=== PATIENT | male | born 1985 | race Caucasian/White ===

== ENCOUNTER 2018-09-23 20:42 | Emergency (ER) | payer BC ==
[2018-09-23 22:19] LABS: Absolute Lymphocytes (CBC) 2.7 K/uL (0.7-4.9); Absolute Monocytes 1.1 K/uL (0.1-1.3); Absolute Neutrophil 5.9 K/uL (1.8-8.0); Basophils % 0.2 % (0-1.3); Eosinophils % 3.3 % (0-4.4); Hematocrit 48.8 % (39.6-49.0); Lymphocytes % 27.2 % (15.3-44.8); MPV 7.5 fL (7.6-11.3); Monocytes % 10.8 % (3.3-12.3)
[2018-09-23] MEDS ORDERED: NA CHLORIDE 0.9% 1,000 ML ONE (22:24)
[2018-09-23] MEDS ORDERED: MORPHINE 4 MG/ML SYR ONE (22:24)
[2018-09-23] MEDS ORDERED: PANTOPRAZOLE 40 MG INJ ONE (22:24)
[2018-09-23] MEDS ORDERED: ONDANSETRON 4 MG/2 ML VIAL ONE (22:24)
[2018-09-23 22:37] LABS: ALT/SGPT 27 U/L (12-78); AST/SGOT 12 U/L (15-37); Albumin 3.8 g/dL (3.4-5.0); Alkaline Phosphatase 72 U/L (45-117); BUN Blood Urea Nitrogen 16 mg/dL (7-18); Bicarbonate 30 mmol/L (21-32); Bilirubin Direct 0.1 mg/dL (0-0.2); Bilirubin Total 0.4 mg/dL (0.2-1.0); Glucose Level 113 mg/dL (74-106); Lipase 82 U/L (73-393); Potassium 3.5 mmol/L (3.5-5.1); Protein, Total 7.4 g/dL (6.4-8.2); Sodium Level 142 mmol/L (136-145)
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
--- NOTE | 2018-09-24 00:31 | EDPHYS ---
Physician Documentation [facility] Name: Kwaku Pro Age: 33 yrs Sex: Male : 1985 Arrival Date: 09/23/2018 Time: 20:45 Bed 5 Private MD: ED Physician Lv Guillen HPI: 09/23 21:50 This 33 yrs old Male presents to ER via Ambulatory with complaints of jinny Abdominal Pain. 21:50 The patient presents with abdominal pain in the epigastric area, in the upper abdomen. jinny Onset: The symptoms/episode began/occurred 2 day(s) ago. The symptoms do not radiate. Associated signs and symptoms: none. Modifying factors: The symptoms are alleviated by nothing, the symptoms are aggravated by nothing. Severity of pain: At its worst the pain was mild moderate in the emergency department the pain is unchanged. The patient has not experienced similar symptoms in the past. Historical: - Allergies: 21:24 No Known Allergies; aa1 - Home Meds: 21:24 None [Active]; aa1 - PMHx: 21:24 None; aa1 - PSHx: 21:24 Exp Lap from [facility]; aa1 - Immunization history:: Flu vaccine is not up to date. - Social history:: Smoking status: Patient uses tobacco products, smokes one-half pack cigarettes per day. - Ebola Screening: : No symptoms or risks identified at this time. - Family history:: not pertinent. ROS: 21:50 Constitutional: Negative for fever, chills, and weight loss, Eyes: Negative for injury, jinny pain, redness, and discharge, ENT: Negative for injury, pain, and discharge, Neck: Negative for injury, pain, and swelling, Cardiovascular: Negative for chest pain, palpitations, and edema, Respiratory: Negative for shortness of breath, cough, wheezing, and pleuritic chest pain, Back: Negative for injury and pain, : Negative for injury, bleeding, discharge, and swelling, MS/Extremity: Negative for injury and deformity, Skin: Negative for injury, rash, and discoloration, Neuro: Negative for headache, weakness, numbness, tingling, and seizure, Psych: Negative for depression, anxiety, suicide ideation, homicidal ideation, and hallucinations, Allergy/Immunology: Negative for hives, rash, and allergies, Endocrine: Negative for neck swelling, polydipsia, polyuria, polyphagia, and marked weight changes, Hematologic/Lymphatic: Negative for swollen nodes, abnormal bleeding, and unusual bruising. 21:50 Abdomen/GI: Positive for abdominal pain, of the epigastric area, right upper quadrant and left upper quadrant. Exam: 21:50 Constitutional: This is a well developed, well nourished patient who is awake, alert, jinny and in no acute distress. Head/Face: Normocephalic, atraumatic. Eyes: Pupils equal round and reactive to light, extra-ocular motions intact. Lids and lashes normal. Conjunctiva and sclera are non-icteric and not injected. Cornea within normal limits. Periorbital areas with no swelling, redness, or edema. ENT: Nares patent. No nasal discharge, no septal abnormalities noted. Tympanic membranes are normal and external auditory canals are clear. Oropharynx with no redness, swelling, or masses, exudates, or evidence of obstruction, uvula midline. Mucous membranes moist. Neck: Trachea midline, no thyromegaly or masses palpated, and no cervical lymphadenopathy. Supple, full range of motion without nuchal rigidity, or vertebral point tenderness. No Meningismus. Chest/axilla: Normal chest wall appearance and motion. Nontender with no deformity. No lesions are appreciated. Cardiovascular: Regular rate and rhythm with a normal S1 and S2. No gallops, murmurs, or rubs. Normal PMI, no JVD. No pulse deficits. Respiratory: Lungs have equal breath sounds bilaterally, clear to auscultation and percussion. No rales, rhonchi or wheezes noted. No increased work of breathing, no retractions or nasal flaring. Back: No spinal tenderness. No costovertebral tenderness. Full range of motion. Male : Normal genitalia with no discharge or lesions. Skin: Warm, dry with normal turgor. Normal color with no rashes, no lesions, and no evidence of cellulitis. MS/ Extremity: Pulses equal, no cyanosis. Neurovascular intact. Full, normal range of motion. Neuro: Awake and alert, GCS 15, oriented to person, place, time, and situation. Cranial nerves II-XII grossly intact. Motor strength 5/5 in all extremities. Sensory grossly intact. Cerebellar exam normal. Normal gait. Psych: Awake, alert, with orientation to person, place and time. Behavior, mood, and affect are within normal limits. 21:50 Abdomen/GI: Inspection: abdomen appears normal, Bowel sounds: normal, Palpation: abdomen is soft and non-tender, in the epigastric area, right upper quadrant and left upper quadrant, Liver: no appreciated palpable abnormalities, Hernia: not appreciated. Vital Signs: 21:24 BP 150 / 89; Pulse 64; Resp 16; Temp 98.3; Pulse Ox 99% on R/A; Weight 102.97 kg; aa1 Height 5 ft. 8 in. (172.72 cm); Pain 9/10; 22:29 BP 146 / 93; Pulse 57; Resp 18; Pulse Ox 96% on R/A; Pain 7/10; aa 23:52 BP 141 / 80; Pulse 60; Resp 16; Pulse Ox 98% on R/A; Pain 6/10; [facility] 09/24 00:52 BP 143 / 89; Pulse 64; Resp 16; Temp 98.1; Pulse Ox 99% on R/A; Pain 7/10; [facility] 09/23 21:24 Body Mass Index 34.51 (102.97 kg, 172.72 cm) [facility] MDM: 09/23 21:17 Patient medically screened. [facility] 21:51 Data reviewed: vital signs, nurses notes, lab test result(s), radiologic studies, CT jinny scan, plain films. 09/23 21:49 Order name: Basic Metabolic Panel; Complete Time: 22:45 [facility] 09/23 21:49 Order name: CBC with Diff; Complete Time: 22:45 [facility] 09/23 21:49 Order name: Creatinine for Radiology; Complete Time: 22:45 [facility] 09/23 21:49 Order name: Hepatic Function; Complete Time: 22:45 [facility] 09/23 21:49 Order name: Lipase; Complete Time: 22:45 [facility] 09/23 21:49 Order name: Chest Single View XRAY [facility] 09/23 21:49 Order name: IV Saline Lock; Complete Time: 22:35 [facility] 09/23 21:49 Order name: Labs collected and sent; Complete Time: 22:35 [facility] 09/23 21:49 Order name: CT Abd/Pelvis - W/Contrast jinny Administered Medications: 22:25 Drug: Zofran 4 mg Route: IVP; Site: left antecubital; [facility] 09/24 00:00 Follow up: Response: No adverse reaction; Nausea is decreased [facility] 09/23 22:25 Drug: NS 0.9% (20 ml/kg) 20 ml/kg Route: IV; Rate: 1 bolus; Site: left antecubital; 09/24 00:00 Follow up: IV Status: Completed infusion [facility] 09/23 22:27 Drug: ProTONIX 40 mg Route: IVP; Site: left antecubital; [facility] 09/24 00:00 Follow up: Response: No adverse reaction; Pain is decreased [facility] 09/23 22:29 Drug: morphine 4 mg Route: IVP; Site: left antecubital; [facility] 09/24 00:00 Follow up: Response: No adverse reaction; Pain is decreased [facility] Disposition: 09/24/18 00:31 Discharged to Home. Impression: Abdominal tenderness, Functional dyspepsia. - Condition is Stable. - Discharge Instructions: Abdominal Pain, Adult, Gastritis, Adult, Gastritis, Adult, [id number], Abdominal Pain, Adult, Gznw-[id number]. - Prescriptions for Bentyl 20 mg Oral Tablet - take 1 tablet by ORAL route every 6 hours As needed; 20 tablet. Protonix 40 mg Oral Tablet, Delayed Release (E.C.) - take 1 tablet by ORAL route once daily; 20 tablet. - Medication Reconciliation Form, Thank You Letter, Antibiotic Education, Prescription Opioid Use form. - Follow up: Private Physician; When: 2 - 3 days; Reason: Recheck today's complaints, Continuance of care, Re-evaluation by your physician. Follow up: Rachid Matos MD; When: 2 - 3 days; Reason: Recheck today's complaints, Re-evaluation by your physician. - Problem is new. - Symptoms have improved. Signatures: Dispatcher [employer] EDMS Yamila Lamar RN RN aa1 Lv Guillen MD MD cha Corrections: (The following items were deleted from the chart) 00:31 00:31 09/24/2018 00:31 Discharged to Home. Impression: Abdominal tenderness; Functional jinny dyspepsia. Condition is Stable. Discharge Instructions: Abdominal Pain, Adult, Gastritis, Adult, Gastritis, Adult, [id number]-[id number], Abdominal Pain, Adult, Ljqa-it-Bgla. Prescriptions for Bentyl 20 mg Oral Tablet - take 1 tablet by ORAL route every 6 hours As needed; 20 tablet, Protonix 40 mg Oral Tablet - take 1 tablet by ORAL route once daily; 30 tablet. and Forms are Medication Reconciliation Form, Thank You Letter, Antibiotic Education, Prescription Opioid Use. Follow up: Private Physician; When: 2 - 3 days; Reason: Recheck today's complaints, Continuance of care, Re-evaluation by your physician. Problem is new. Symptoms have improved. [facility] 00:54 00:31 09/24/2018 00:31 Discharged to Home. Impression: Abdominal tenderness; Functional aa1 dyspepsia. Condition is Stable. Discharge Instructions: Abdominal Pain, Adult, Gastritis, Adult, Gastritis, Adult, Jtiz-au-Dsla, Abdominal Pain, Adult, [id number]-[id number]. Prescriptions for Bentyl 20 mg Oral Tablet - take 1 tablet by ORAL route every 6 hours As needed; 20 tablet, Protonix 40 mg Oral Tablet - take 1 tablet by ORAL route once daily; 30 tablet. and Forms are Medication Reconciliation Form, Thank You Letter, Antibiotic Education, Prescription Opioid Use. Follow up: Private Physician; When: 2 - 3 days; Reason: Recheck today's complaints, Continuance of care, Re-evaluation by your physician. Follow up: Rachid Matos; When: 2 - 3 days; Reason: Recheck today's complaints, Re-evaluation by your physician. Problem is new. Symptoms have improved. [facility]
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
== END 2018-09-24 00:54 | disposition home or self-care (01) ==
LOC: ER 20:42
DX: K30 Functional dyspepsia (principal); F17.210 Nicotine dependence, cigarettes, uncomplicated
CPT/HCPCS: 36415; 71045; 74177; 80048; 80076; 83690; 85025; 96361; 96374; 96375; 99284; C9113; J2405; J7030; Q9967

== ENCOUNTER 2020-06-02 11:51 | Emergency (ER) | payer BC ==
--- NOTE | 2020-06-02 16:18 | RAD REPORT ---
EXAM DESCRIPTION: US - Extremity Venous Uni Ltd - 06/02/2020 3:57 pm CLINICAL HISTORY: Left arm pain and swelling COMPARISON: None. TECHNIQUE: Real-time sonographic evaluation of the left upper extremity deep venous systems was perf ormed. FINDINGS: Normal compressibility, flow augmentation, phasic flow and spontaneous flow are identified in the left upper extremity deep venous system. No intraluminal filling defects seen. Internal jugul ar and subclavian veins are normal as well. IMPRESSION: No DVT in the left upper extremity.
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
[2020-06-02 17:10] VITALS: BP 145/87; TEMP 98.9; O2SAT 100
== END 2020-06-02 16:57 | disposition home or self-care (01) ==
LOC: ER 11:51
DX: S64.02XA Injury of ulnar nerve at wrist and hand level of left arm, initial encounter (principal); F17.210 Nicotine dependence, cigarettes, uncomplicated; Z86.718 Personal history of other venous thrombosis and embolism
CPT/HCPCS: 93971; 99283